=== PATIENT | male | born 1985 ===

== ENCOUNTER 2023-07-25 13:40 | Emergency (ER) | payer MEDICAID, OTHER ==
[~2023-07-25] VITALS: Ht 180.3 cm; Wt 92.1 kg
[2023-07-25] MEDS ORDERED: SULF1TAB48 PO (14:22)
[2023-07-25 14:30] VITALS: BP 145/75; TEMP 98.2; O2SAT 97
== END 2023-07-25 14:31 | disposition home or self-care (01) ==
LOC: ER 13:40
DX: L02.01 Cutaneous abscess of face (principal); Z79.899 Other long term (current) drug therapy
CPT/HCPCS: A4606; A4663

== ENCOUNTER 2023-11-21 14:57 | Emergency (ER) | payer OTHER ==
[~2023-11-21] VITALS: Ht 180.3 cm; Wt 88.5 kg
[~2023-11-21 14:57] MED LIST: SULF1TAB48 PO
[2023-11-21] MEDS ORDERED: AMOX-430 PO (16:08)
[2023-11-21] MEDS ORDERED: ONDA4TAB5 PO (16:08)
[2023-11-21] MEDS ORDERED: DOXY100C5 PO (16:08)
[2023-11-21] MEDS ORDERED: IBUP-1955 PO (16:08)
[2023-11-21 17:08] VITALS: BP 118/80; TEMP 98; O2SAT 99
== END 2023-11-21 16:30 | disposition home or self-care (01) ==
LOC: ER 14:59
DX: L02.01 Cutaneous abscess of face (principal); F17.200 Nicotine dependence, unspecified, uncomplicated; Z79.899 Other long term (current) drug therapy; Z60.2 Problems related to living alone
CPT/HCPCS: A4606; A4663